=== PATIENT | female | born 1930 | race Caucasian/White ===

== ENCOUNTER 2019-02-19 15:45 | Emergency (ER) | payer BC ==
[~2019-02-19] VITALS: Ht 157.5 cm; Wt 50.8 kg
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
--- NOTE | 2019-02-19 16:10 | NUR ---
PT TAKEN TO CT
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
--- NOTE | 2019-02-19 17:02 | NUR ---
Patient discharged to home in stable condition. Written and verbal after care instructions given. Patient verbalizes understanding of instruction. PT ambulatory with a steady gait.
[2019-02-19 17:11] VITALS: BP 132/62
== END 2019-02-19 17:12 | disposition home or self-care (01) ==
LOC: ER 15:50
DX: S01.01XA Laceration without foreign body of scalp, initial encounter (principal); S51.011A Laceration without foreign body of right elbow, initial encounter; S61.210A Laceration without foreign body of right index finger without damage to nail, initial encounter; Z95.818 Presence of other cardiac implants and grafts; Z86.73 Personal history of transient ischemic attack (TIA), and cerebral infarction without residual deficits; W10.0XXA Fall (on)(from) escalator, initial encounter; Y93.89 Activity, other specified; Y92.89 Other specified places as the place of occurrence of the external cause; Y99.8 Other external cause status
CPT/HCPCS: 12002; 70450; 99284; A6403